=== PATIENT | female | born 2000 | race Caucasian/White ===

== ENCOUNTER 2019-02-27 16:19 | Emergency (ER) | payer SELFPAY ==
[~2019-02-27] VITALS: Ht 170.2 cm; Wt 86.2 kg
[~2019-02-27 16:19] MED LIST: ADDERALL XR 1010 MG PO; AMPHETAMINE SAL10 MG PO; BENZONATATE100 MG PO; CEPHALEXIN500 MG PO; FLUOXETINE HCL10 M1 PO; IBUPROFEN600 MG PO; NAPROXEN500 MG PO; TRI-LINYAH1 EACH PO; VENTOLIN HFA18 GM INH; ZOFRAN ODT4 MG PO; ZOLPIDEM TARTRAT5 MG PO
--- OUTSIDE RECORDS SUMMARY | 2019-02-27 16:22 | XMS ---
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 RAVIN PHONE: Unknown [facility] Current PHONE: Unknown Joan has no Care Guidelines for this patient. Taty VISIT COUNT (12 MO.) 2 Angelica Liu TOTAL 4 NOTE: Visits indicate total known visits. 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
[2019-02-27] MEDS ORDERED: VENTOLIN HFA18 GM INH (17:17)
[2019-02-27] MEDS ORDERED: DOXYCYCLINE HY100 MG PO (17:17)
[2019-02-27] MEDS ORDERED: PREDNISONE20 MG PO (17:17)
== END 2019-02-27 17:31 | disposition home or self-care (01) ==
LOC: ED 16:19
DX: J45.901 Unspecified asthma with (acute) exacerbation (principal); F90.9 Attention-deficit hyperactivity disorder, unspecified type; F17.200 Nicotine dependence, unspecified, uncomplicated; Z88.1 Allergy status to other antibiotic agents; Z88.2 Allergy status to sulfonamides
CPT/HCPCS: 99283; A9270; J7512

== ENCOUNTER 2019-05-14 16:22 | Emergency (ER) | payer SELFPAY ==
[~2019-05-14] VITALS: Ht 170.2 cm; Wt 86.2 kg
[~2019-05-14 16:22] MED LIST changes: +DOXYCYCLINE HY100 MG PO; +PREDNISONE20 MG PO
--- OUTSIDE RECORDS SUMMARY | 2019-05-14 16:24 | XMS ---
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 10/07/2018-Current PHONE: Unknown [facility] Current PHONE: Unknown Joan has no Care Guidelines for this patient. Care History Medical/Surgical 03/01/2019 [facility] - [facility] IS UNABLE TO CONTACT PATIENT AT NUMBER LISTED- - PLEASE REFER PATIENT TO THE WALK IN CLINIC TO ESTABLISH CARE WITH A PCP FOR NON EMERGENT MEDICAL NEEDS. PATIENT CAN APPLY FOR MEDICAL BENEFITS A CHW AT [facility]. - NO PCP LETTER SENT TO PATIENT. E.D. VISIT COUNT (12 MO.) 2 [facility]. Mary Noe 3 MAX Liu TOTAL 5 NOTE: Visits indicate total known visits. ED/UCC VISIT TRACKING (12 MO.) 05/14/2019 16:22 [facility] TYPE: Emergency COMPLAINT: - COUGH, CONGESTION 02/27/2019 16:20 [facility] TYPE: Emergency COMPLAINT: - SOB DIAGNOSES: - Unspecified asthma with (acute) exacerbation - Nicotine dependence, unspecified, uncomplicated - Acute pharyngitis, unspecified - Allergy status to sulfonamides status - Allergy status to other antibiotic agents status - Attention-deficit hyperactivity disorder, unspecified type 10/06/2018 16:55 [facility] TYPE: Emergency COMPLAINT: - POSSIBLE MISCARRIAGE DIAGNOSES: - Abnormal uterine and vaginal bleeding, unspecified - Allergy status to sulfonamides status - Allergy status to other antibiotic agents status - Nicotine dependence, unspecified, uncomplicated - Complete or unsp spontaneous without complication - Attention-deficit hyperactivity disorder, unspecified type - 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
[2019-05-14] MEDS ORDERED: PREDNISONE20 MG PO (19:09)
[2019-05-14] MEDS ORDERED: DOXYCYCLINE HY100 MG PO (19:09)
== END 2019-05-14 19:16 | disposition home or self-care (01) ==
LOC: ED 16:22
DX: J45.909 Unspecified asthma, uncomplicated (principal); F90.9 Attention-deficit hyperactivity disorder, unspecified type; F17.200 Nicotine dependence, unspecified, uncomplicated; Z88.2 Allergy status to sulfonamides; Z79.899 Other long term (current) drug therapy
CPT/HCPCS: 71046; 99283-25; J7512